=== PATIENT | female | born 1960 | race Caucasian/White ===

== ENCOUNTER 2018-10-18 09:42 | Inpatient (IN) | payer MEDICARE, OTHER ==
[~2018-10-18] VITALS: Ht 162.6 cm; Wt 35.4 kg
[~2018-10-18 09:42] MED LIST: AMITRIPTYLINE H75 M1 PO; AMLODIPINE BESY10 MG PO; AZITHROMYCIN 2250 MG; CARISOPRODOL 3350 M1 PO; CLONIDINE0.1 PO; CYCLOBENZAPRINE10 MG PO; LEVAQUIN 500 M500 M3 PO; LYRICA 75 MG CA75 MG PO; OMEPRAZOLE40 MG PO; OXYCODONE HCL 55 MG PO; PERCOCET 10-321 EACH PO; PREDNISONE 10 M10 M1 PO; REQUIP 1 MG TABL1 M1 PO; ROPINIROLE HCL2 M1 PO; ROPINIROLE HCL4 MG PO; VENTOLIN HFA 1818 GM INH; VICODIN 5-3001 EACH PO; VITAMIN D 5050000 I1 PO; XOPENEX HF1 UDINHALE INH
[2018-10-18 09:44] VITALS: BP 123/84
[2018-10-18 10:16] LABS: ABSOLUTE BASOPHILS 0.1 thou/uL (0.0-0.2); ABSOLUTE EOSINOPHILS 0.2 thou/uL (0.0-0.7); ABSOLUTE LYMPHOCYTES 0.6 thou/uL (0.8-5.3); ABSOLUTE MONOCYTES 0.6 thou/uL (0.0-1.2); ABSOLUTE NEUTROPHILS 7.7 thou/uL (1.6-8.1); BASOPHILS 0.6 %; EOSINOPHILS 1.8 %; HEMOGLOBIN 12.9 gm/dL (12.0-15.0); LYMPHOCYTES 6.5 %; MCH 28.1 pg (26.0-34.0); MCHC 32.2 g/dL (28.0-37.0); MCV 87.1 fL (80.0-100.0); MONOCYTES 6.6 %; MPV 8.5 fl. (7.2-11.1); NUCLEATED RBCS 0 /100WBC; PLATELET COUNT* 158 thou/uL (150-400); POLYS 84.5 %; RBC 4.59 mil/uL (4.20-5.00); RDW-CV 13.7 % (10.5-14.5); WBC 9.2 thou/uL (4.0-11.0)
[2018-10-18 10:23] LABS: CALCIUM 8.8 mg/dL (8.5-10.1); CREATININE 0.4 mg/dL (0.6-1.3); POTASSIUM 3.7 mmol/L (3.5-5.1)
[2018-10-18 10:30] LABS: PROTIME 10.5 Seconds (9.20-11.50)
[2018-10-18 10:34] LABS: ALBUMIN 3.5 g/dL (3.4-5.0); TOTAL BILIRUBIN 0.4 mg/dL (<0.1-1.0); TOTAL PROTEIN 7.2 g/dL (6.4-8.2)
[2018-10-18 11:31] LABS: URINE BILIRUBIN NEGATIVE (Negative); URINE BLOOD NEGATIVE (Negative); URINE CLARITY CLEAR; URINE COLOR YELLOW; URINE GLUCOSE-RANDOM NEGATIVE (Negative); URINE KETONES NEGATIVE (Negative); URINE LEUKOCYTES-REFLEX NEGATIVE (Negative); URINE NITRITE-REFLEX NEGATIVE (Negative); URINE PROTEIN NEGATIVE (Negative); URINE UROBILINOGEN 0.2 E.U./dl (0.2-1.0)
[2018-10-18 12:28] VITALS: BP 135/83
[2018-10-18 12:45] VITALS: BP 124/70
--- NOTE | 2018-10-18 16:55 | 2DMMODE ---
[place] [address] 2 D/M-MODE ECHOCARDIOGRAM Name: RADHA SCHNEIDER Room: [address] IN [facility]#: [id number] Admission: 10/18/18 Attend Phys: Malaika Wren, Discharge: Date of : 64 Date of Service: 10/18/18 1654 Report #: [id number] THIS REPORT FOR: //name// APPROVED REPORT Study performed: 10/18/2018 14:50:48 EXAM: Comprehensive 2D, Doppler, and color-flow Echocardiogram Patient Location: In-Patient Room #: [facility] Status: routine BSA: 1.20 HR: 100 bpm BP: 124/70 mmHg Rhythm: NSR Other Information Study Quality: Good Indications Pre-Op 2D Dimensions IVSd: 6.62 (7-11mm) LVOT Diam: 19.48 (18-24mm) LVDd: 31.13 mm PWd: 6.55 (7-11mm) LVDs: 25.23 (25-40mm) Aortic Root: 29.07 mm Volumes Left Atrial Volume (Systole) LA ESV Index: 28.40 mL/m2 Aortic Valve AoV Peak Felix.: 1.36 m/s AO Peak Gr.: 7.36 mmHg LVOT Max P.69 mmHg AO Mean Gr.: 3.54 mmHg LVOT Mean P.60 mmHg LVOT Max V: 0.96 m/s AO V2 VTI: 16.49 cm LVOT Mean V: 0.57 m/s TABITHA (VTI): 2.82 cm2 LVOT V1 VTI: 15.62 cm Mitral Valve E/A Ratio: 0.78 MV Decel. Time: 173.48 ms MV E Max Felix.: 0.79 m/[place] [address] 2 D/M-MODE ECHOCARDIOGRAM Name: RADHA SCHNEIDER Room: [address] IN [facility]#: [id number] Admission: 10/18/18 Attend Phys: Malaika Wren, Discharge: Date of : 64 Date of Service: 10/18/18 1654 Report #: [id number] MV PHT: 50.31 ms MVA (PHT): 4.37 cm2 TDI E/Lateral E': 7.90 E/Medial E': 8.78 Medial E' Felix.: 0.09 m/s Lateral E' Felix.: 0.10 m/s Pulmonary Valve PV Peak Felix.: 1.10 m/s PV Peak Gr.: 4.84 mmHg Tricuspid Valve RAP Estimate: 5.00 mmHg TR Peak Gr.: 43.88 mmHg RVSP: 48.00 mmHg PA Pressure: 48.00 mmHg Left Ventricle The left ventricle is normal size. There is normal LV segmental wall motion. There is normal left ventricular wall thickness. Left ventricular systolic function is normal. LVEF is 60-65%. Transmitral Doppler flow pattern suggests impaired LV relaxation. Right Ventricle The right ventricle is normal size. The right ventricular systolic function is normal. Atria The left atrium size is normal. The right atrium size is normal. Aortic Valve The aortic valve is normal in structure. No aortic regurgitation is present. There is no aortic valvular stenosis. Mitral Valve The mitral valve is normal in structure. There is no mitral valve regurgitation noted. No evidence of mitral valve stenosis. Tricuspid Valve The tricuspid valve is normal in structure. Trace tricuspid regurgitation. The RVSP is 45-50 mmHg. Pulmonic Valve The pulmonary valve is normal in structure. There is no pulmonic [place] [address] 2 D/M-MODE ECHOCARDIOGRAM Name: RADHA SCHNEIDER Room: [address] IN [facility]#: [id number] Admission: 10/18/18 Attend Phys: Malaika Wren, Discharge: Date of : 64 Date of Service: 10/18/18 1654 Report #: [id number] Great Vessels The aortic root is normal in size. IVC is normal in size and collapses >50% with inspiration. Pericardium There is no pericardial effusion. <Conclusion> The left ventricle is normal size. There is normal left ventricular wall thickness. Left ventricular systolic function is normal. LVEF is 60-65%. Transmitral Doppler flow pattern suggests impaired LV relaxation. Trace tricuspid regurgitation. The RVSP is 45-50 mmHg. IVC is normal in size and collapses >50% with inspiration. <ELECTRONICALLY SIGNED> By: Luis Hale MD, FACC 10/18/18 1654 53 [phone] Luis Hale MD, FACC /INF
[2018-10-18 17:25] VITALS: BP 136/74
[2018-10-18 20:00] VITALS: BP 118/73
[2018-10-19] VITALS (25 sets, daily range): BP systolic 79–200; BP diastolic 49–113
[2018-10-19 05:12] LABS: HEMATOCRIT 35.6 % (37.0-47.0); HEMOGLOBIN 11.6 gm/dL (12.0-15.0); MCH 28.6 pg (26.0-34.0); MCHC 32.5 g/dL (28.0-37.0); RBC 4.04 mil/uL (4.20-5.00); RDW-CV 13.6 % (10.5-14.5); WBC 6.7 thou/uL (4.0-11.0)
[2018-10-19 05:39] LABS: ALBUMIN 3.1 g/dL (3.4-5.0); CALCIUM 7.9 mg/dL (8.5-10.1); CREATININE 0.4 mg/dL (0.6-1.3); MAGNESIUM 1.9 mg/dL (1.8-2.4); POTASSIUM 4.6 mmol/L (3.5-5.1); TOTAL BILIRUBIN 0.2 mg/dL (<0.1-1.0); TOTAL PROTEIN 6.6 g/dL (6.4-8.2)
--- NOTE | 2018-10-19 10:49 | CON ---
[address] [address] CONSULTATION Name: RADHA SCHNEIDER Room: [address] IN [facility]#: [id number] Admission: 10/18/18 Attend Phys: Malaika Wren MD Discharge: Date of : 64 Report #: [id number] THIS REPORT FOR: //name// CC: Alexis Wren DATE OF SERVICE: 10/18/2018 TYPE OF REPORT: New patient evaluation. REASON FOR EVALUATION: Pneumothorax, shortness of breath, chronic respiratory failure and interstitial lung disease. HISTORY OF PRESENT ILLNESS: The patient is a pleasant 57-year-old woman with history of CREST syndrome, interstitial lung disease, chronic hypoxemic respiratory failure and has been on oxygen since 2012 and history of COPD. Apparently, she was admitted to [facility] after a fall and she has right hip fracture. She is being evaluated for surgery. Had a workup, which included chest x-ray showed incidental small right pneumothorax measuring 8 mm. It is noted that in 2017, she had large left-sided pneumothorax, has to be transferred for research and apparently had surgery. At this time, she denies any change in her shortness of breath. She states though last Friday, had some worsening shortness of breath and sore throat and was started on prednisone with some improvement; however, at this time, she is stable. No cough, no wheezing, no fever and no chills. Last echo in 2017, EF was normal. Her pulmonary artery pressure was normal at 29 at that time. The patient had extensive history of smoking. Has a history of CREST syndrome, interstitial lung disease which looks severe on chest x-ray and on oxygen since 2012. PAST MEDICAL HISTORY: CREST syndrome; scleroderma; hip fracture, new; previous history of left-sided pneumothorax and now right-sided pulmonary fibrosis, Raynaud, COPD and pneumothorax. ALLERGIES: MORPHINE. MEDICATIONS: Noted and reviewed. PAST SURGICAL HISTORY: Had right knee surgery, and carpal tunnel. FAMILY HISTORY: Mother, breast cancer. SOCIAL HISTORY: Actively smoking[place] [address] CONSULTATION Name: RADHA SCHNEIDER Room: [address]#: [id number] Admission: 10/18/18 Attend Phys: Malaika Wren MD Discharge: Date of : 64 Report #: [id number] REVIEW OF SYSTEMS: A 12-point review of systems significant for Raynaud's phenomenon, history of weakness, fatigue, shortness of breath on exertion and on oxygen, history of right hip pain post-fracture and denies chest pain. Otherwise, 12-point review of systems as above. PHYSICAL EXAMINATION: GENERAL: The patient is not in distress, afebrile. VITAL SIGNS: Pulse is 95, respiratory rate is 18, blood pressure 124/70 and O2 saturation is adequate on 2 liters with oxygen saturation of 99%. HEAD AND NECK: Neck supple. Oral mucosa clear. CHEST: Diffuse crackles. CARDIOVASCULAR: Irregular rhythm. ABDOMEN: Soft and nontender. EXTREMITIES: She has clubbing. NEUROLOGICAL: She has cachexia with wasting. LABORATORY AND OTHER DATABASE: White blood cell count 9.2 and hemoglobin 12.9. Creatinine of 0.4. Natriuretic peptide, pro-BNP 229. Chest x-ray as above, diffuse interstitial lung disease, severe. Please note that this the patient has pneumothorax on the contralateral side on the left side in 2017. The right side is new, as measuring 8 mm. ASSESSMENT AND PLAN: 1. Interstitial lung disease with chronic obstructive pulmonary disease with a pneumothorax. Her pneumothorax is spontaneous but with a history of chronic obstructive pulmonary disease, it is secondary, I agree with to monitor closely. We will obtain a chest x-ray later today. At this time, it is small; however, if it exceeds 2 cm, likely will need a chest tube as the patient has history of chronic obstructive pulmonary disease. 2. Interstitial lung disease, severe. At this time, we will continue oxygen with a history of previous prednisone use, likely will need stress dose steroids perioperatively. PREOPERATIVE EVALUATION: Her risk for postoperative pulmonary complication is moderate to high at least a 13% and risks include atelectasis, pneumonia, prolonged respiratory failure and pulmonary embolism. At this time, need to optimize her care and as above, stress dose steroids perioperatively. Recommend to obtain followup chest x-ray. Agree to hold on surgery today with a previous history of severe pneumothorax and COPD. Continue bronchodilator treatment perioperatively. This was discussed with the patient as well as nursing and we will discuss with Dr. Wren as well. <ELECTRONICALLY SIGNED> By: Suman Lang MD 10/19/18 1049 [id number] [id number] Lang MD /nt
--- NOTE | 2018-10-19 14:12 | CON ---
[address] [address] CONSULTATION Name: RADHA SCHNEIDER Room: [address] IN [facility]#: [id number] Admission: 10/18/18 Attend Phys: Malaika Wren MD Discharge: Date of : 64 Report #: [id number] THIS REPORT FOR: //name// CC: Alexis Wren CARDIOLOGY CONSULTATION INDICATION: Preoperative evaluation. HISTORY OF PRESENT ILLNESS: The patient is a 57-year-old white female who was admitted to the hospital with a right hip fracture after falling at home today. She has CREST syndrome and severe pulmonary fibrosis. She is status post pleurodesis 1 year ago at [facility] for recurrent pneumothoraces. She denies any history of myocardial infarction or heart failure. She is not having any chest pain or significant orthopnea or paroxysmal nocturnal dyspnea. EKG shows sinus tachycardia, without significant abnormality. PAST MEDICAL HISTORY: 1. CREST syndrome. 2. Pulmonary fibrosis. 3. Raynaud's phenomenon. 4. Previous colectomy. 5. Carpal tunnel surgery. 6. Ulnar nerve surgery. 7. Right knee surgery. 8. . 9. Restless leg syndrome. 10. COPD. 11. Asthma. 12. Pneumothorax x 2 on the left side, status post pleurodesis last year. FAMILY HISTORY: Noncontributory. SOCIAL HISTORY: The patient smokes daily. She does not drink alcohol. ALLERGIES: MORPHINE. CURRENT MEDICATIONS: Albuterol inhaler q. 4 hours p.r.n., omeprazole 40 mg daily, Flexeril 10 mg t.i.d., clonidine 0.1 mg daily, vitamin D 50,000 units daily, carisoprodol 350 mg p.o. q. 6 hours, ropinirole 4 mg daily, Lyrica 75 mg t.i.d. and oxycodone IR 5 mg 1-2 tablets q. 3 hours p.r.n. PHYSICAL EXAMINATION: VITAL SIGNS: Blood pressure 124/70, pulse 95 and regular. GENERAL: This is a very thin, white female, in no distress. [place] [address] CONSULTATION Name: RADHA SCHNEIDER Jan Room: [address]#: [id number] Admission: 10/18/18 Attend Phys: Malaika Wren MD Discharge: Date of : 64 Report #: [id number] HEENT: The patient is wearing glasses. Extraocular muscles intact. Mucous membranes moist. NECK: Examination of the neck shows no jugular venous distention. CHEST: Examination of the chest reveals bilateral crackles, consistent with fibrosis. Breath sounds are diminished. CARDIAC EXAMINATION: Reveals a regular rhythm with normal S1 and S2. I do not appreciate gallop or murmur. ABDOMEN: Examination of the abdomen reveals normal bowel sounds. EXTREMITIES: Examination of the extremities shows no edema. IMPRESSION AND RECOMMENDATIONS: 1. The patient is at low risk from a Cardiovascular standpoint for perioperative morbidity or mortality. No further cardiac testing or evaluation necessary at this time. Of note, the patient did have surgery with general anesthesia last year, which she tolerated well. 2. Right hip fracture, per Orthopedic Surgery. 3. Pulmonary fibrosis, per Pulmonology. 4. CREST syndrome, per primary physician. From a cardiac standpoint, the patient is not at prohibitive risk to proceed with surgery. We will follow as needed. <ELECTRONICALLY SIGNED> By: Luis Hale MD, FACC 10/19/18 1412 1608 [id number] Hale MD, FACC /nt
[2018-10-19 14:34] LABS: BE 4.5 mmol/L (-2 to +3)
[2018-10-19 14:36] LABS: pH 6.997 (7.340-7.450)
[2018-10-19 14:41] LABS: PCO2 > 163.4 mmHg (35.0-45.0)
[2018-10-19 16:53] LABS: BE 5.8 mmol/L (-2 to +3); PO2 60.2 mmHg (75.0-100.0)
[2018-10-19 16:54] LABS: pH 7.277 (7.340-7.450)
[2018-10-19 16:55] LABS: PCO2 76.4 mmHg (35.0-45.0)
[2018-10-20] VITALS (44 sets, daily range): BP systolic 84–128; BP diastolic 44–81
[2018-10-20 05:51] LABS: HEMATOCRIT 30.5 % (37.0-47.0); HEMOGLOBIN 9.9 gm/dL (12.0-15.0); MCH 28.5 pg (26.0-34.0); MCHC 32.5 g/dL (28.0-37.0); MCV 87.5 fL (80.0-100.0); MPV 9.3 fl. (7.2-11.1); RBC 3.48 mil/uL (4.20-5.00); RDW-CV 13.1 % (10.5-14.5); WBC 6.4 thou/uL (4.0-11.0)
[2018-10-20 06:01] LABS: CREATININE 0.2 mg/dL (0.6-1.3); MAGNESIUM 1.7 mg/dL (1.8-2.4); POTASSIUM 4.3 mmol/L (3.5-5.1)
[2018-10-20 11:29] LABS: BE 7.3 mmol/L (-2 to +3)
[2018-10-20 11:33] LABS: pH 7.252 (7.340-7.450)
[2018-10-20 11:34] LABS: PCO2 85.1 mmHg (35.0-45.0); PO2 131.2 mmHg (75.0-100.0)
--- NOTE | 2018-10-20 13:03 | EKG ---
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: : 1960 Requested By: Alejandro Rodriguez Order Number: [id number] MD: Je Miller Measurements Intervals [place] Rate: 102 P: 32 MD: 113 QRS: 62 QRSD: 76 T: 75 QT: 311 QTc: 406 Interpretive Statements Sinus tachycardia Consider left ventricular hypertrophy Baseline wander in lead(s) V1 Compared to ECG 03/17/2017 14:09:43 Sinus rhythm no longer present Electronically Signed On 10-20-2018 13:03:02 CDT by Je Miller [email or web address] <ELECTRONICALLY SIGNED> By: Je Miller MD, FAC 10/20/18 1303 1004 1004 Je Miller MD, [facility] /EPI
[2018-10-21] VITALS (16 sets, daily range): BP systolic 87–141; BP diastolic 58–98
[2018-10-21 04:14] LABS: HEMATOCRIT 29.3 % (37.0-47.0); HEMOGLOBIN 9.7 gm/dL (12.0-15.0); MCHC 33.2 g/dL (28.0-37.0); MCV 87.3 fL (80.0-100.0); MPV 9.5 fl. (7.2-11.1); RBC 3.35 mil/uL (4.20-5.00); RDW-CV 13.4 % (10.5-14.5); WBC 5.4 thou/uL (4.0-11.0)
[2018-10-21 04:51] LABS: ALBUMIN 2.4 g/dL (3.4-5.0); CALCIUM 8.1 mg/dL (8.5-10.1); CREATININE 0.2 mg/dL (0.6-1.3); MAGNESIUM 2.1 mg/dL (1.8-2.4); POTASSIUM 4.5 mmol/L (3.5-5.1); TOTAL BILIRUBIN 0.3 mg/dL (<0.1-1.0); TOTAL PROTEIN 5.9 g/dL (6.4-8.2)
[2018-10-21 08:46] LABS: BE 12.2 mmol/L (-2 to +3); pH 7.331 (7.340-7.450)
[2018-10-21 08:49] LABS: PCO2 78.3 mmHg (35.0-45.0)
[2018-10-22] VITALS (12 sets, daily range): BP systolic 102–157; BP diastolic 65–91
[2018-10-22 03:26] LABS: ABSOLUTE LYMPHOCYTES 0.9 thou/uL (0.8-5.3); ABSOLUTE MONOCYTES 0.6 thou/uL (0.0-1.2); ABSOLUTE NEUTROPHILS 5.8 thou/uL (1.6-8.1); BASOPHILS 0.1 %; EOSINOPHILS 0.2 %; HEMATOCRIT 30.7 % (37.0-47.0); LYMPHOCYTES 12.4 %; MCH 28.1 pg (26.0-34.0); MCHC 32.6 g/dL (28.0-37.0); MCV 86.2 fL (80.0-100.0); MONOCYTES 8.3 %; MPV 9.1 fl. (7.2-11.1); NUCLEATED RBCS 0 /100WBC; PLATELET COUNT* 162 thou/uL (150-400); RBC 3.56 mil/uL (4.20-5.00); RDW-CV 12.9 % (10.5-14.5); WBC 7.4 thou/uL (4.0-11.0)
[2018-10-22 03:45] LABS: ALBUMIN 2.5 g/dL (3.4-5.0); ALKALINE PHOSPHATASE 70 U/L (46-116); ANION GAP < 0 mmol/L (7-16); BUN 9 mg/dL (7-18); CALCIUM 8.3 mg/dL (8.5-10.1); CHLORIDE 100 mmol/L (98-107); CO2 44 mmol/L (21-32); CREATININE 0.3 mg/dL (0.6-1.3); GLUCOSE 127 mg/dL (70-99); MAGNESIUM 1.6 mg/dL (1.8-2.4); SGOT 12 U/L (15-37); SGPT 19 U/L (30-65); SODIUM 143 mmol/L (136-145); TOTAL BILIRUBIN 0.2 mg/dL (<0.1-1.0); TOTAL PROTEIN 5.8 g/dL (6.4-8.2)
[2018-10-23] VITALS (23 sets, daily range): BP systolic 83–124; BP diastolic 41–76
[2018-10-23 03:49] LABS: ABSOLUTE EOSINOPHILS 0.1 thou/uL (0.0-0.7); ABSOLUTE LYMPHOCYTES 1.2 thou/uL (0.8-5.3); ABSOLUTE MONOCYTES 0.4 thou/uL (0.0-1.2); ABSOLUTE NEUTROPHILS 3.1 thou/uL (1.6-8.1); BASOPHILS 0.2 %; EOSINOPHILS 2.6 %; HEMATOCRIT 26.2 % (37.0-47.0); HEMOGLOBIN 8.3 gm/dL (12.0-15.0); LYMPHOCYTES 25.9 %; MCH 27.8 pg (26.0-34.0); MCHC 31.9 g/dL (28.0-37.0); MCV 87.3 fL (80.0-100.0); MONOCYTES 7.4 %; MPV 8.3 fl. (7.2-11.1); NUCLEATED RBCS 0 /100WBC; PLATELET COUNT* 136 thou/uL (150-400); POLYS 63.9 %; RDW-CV 13.3 % (10.5-14.5); WBC 4.8 thou/uL (4.0-11.0)
[2018-10-23 04:00] LABS: ALBUMIN 2.3 g/dL (3.4-5.0); ALKALINE PHOSPHATASE 63 U/L (46-116); ANION GAP < 0 mmol/L (7-16); BUN 11 mg/dL (7-18); CALCIUM 8.2 mg/dL (8.5-10.1); CHLORIDE 101 mmol/L (98-107); CO2 41 mmol/L (21-32); CREATININE 0.4 mg/dL (0.6-1.3); GLUCOSE 118 mg/dL (70-99); MAGNESIUM 1.8 mg/dL (1.8-2.4); PHOSPHORUS* 1.8 mg/dL (2.5-4.9); POTASSIUM 4.8 mmol/L (3.5-5.1); SGOT 11 U/L (15-37); SGPT 18 U/L (30-65); SODIUM 141 mmol/L (136-145); TOTAL BILIRUBIN 0.2 mg/dL (<0.1-1.0); TOTAL PROTEIN 5.3 g/dL (6.4-8.2)
[2018-10-24] VITALS (7 sets, daily range): BP systolic 98–128; BP diastolic 56–82
[2018-10-24] MEDS ORDERED: PERCOCET 10-321 EAC1 PO (10:10)
[2018-10-24] MEDS ORDERED: TOPAMAX 100 MG100 MG PO (10:15)
[2018-10-24] MEDS ORDERED: REMERON15 MG PO (10:16)
[2018-10-24] MEDS ORDERED: LINZESS290 MCG PO (10:17)
[2018-10-24] MEDS ORDERED: EFFEXOR XR75 MG PO (10:17)
[2018-10-24] MEDS ORDERED: IPRAT-ALBUT 0.5-3 ML INH (10:18)
[2018-10-24] MEDS ORDERED: SENNA-S TABLET1 EACH PO (10:20)
[2018-10-25] VITALS: BP 106/57
[2018-10-25 04:00] VITALS: BP 130/75
[2018-10-25 05:30] LABS: ABSOLUTE LYMPHOCYTES 1.1 thou/uL (0.8-5.3); BASOPHILS 0.4 %; MCV 86.9 fL (80.0-100.0)
[2018-10-25 05:32] LABS: ABSOLUTE EOSINOPHILS 0.2 thou/uL (0.0-0.7); ABSOLUTE MONOCYTES 0.5 thou/uL (0.0-1.2); ABSOLUTE NEUTROPHILS 5.8 thou/uL (1.6-8.1); EOSINOPHILS 2.6 %; HEMOGLOBIN 8.8 gm/dL (12.0-15.0); LYMPHOCYTES 14.6 %; MCH 28.5 pg (26.0-34.0); MCHC 32.8 g/dL (28.0-37.0); MPV 9.6 fl. (7.2-11.1); NUCLEATED RBCS 0 /100WBC; PLATELET COUNT* 149 thou/uL (150-400); POLYS 75.4 %; RDW-CV 13.3 % (10.5-14.5); WBC 7.7 thou/uL (4.0-11.0)
[2018-10-25 05:52] LABS: CALCIUM 8.5 mg/dL (8.5-10.1); CREATININE 0.3 mg/dL (0.6-1.3); POTASSIUM 3.9 mmol/L (3.5-5.1)
[2018-10-25 08:00] VITALS: BP 105/68
[2018-10-25 11:30] VITALS: BP 99/56
[2018-10-25 16:00] VITALS: BP 99/74
[2018-10-25 20:00] VITALS: BP 142/82
[2018-10-26] VITALS: BP 120/89
[2018-10-26 04:00] VITALS: BP 128/79
[2018-10-26 08:21] VITALS: BP 121/79
[2018-10-26 12:19] VITALS: BP 110/71
[2018-10-26 16:29] VITALS: BP 124/79
[2018-10-26 20:00] VITALS: BP 114/64
--- NOTE | 2018-10-26 21:24 | OP ---
[address] [address] OPERATIVE REPORT Name: RADHA SCHNEIDER Room: [address] IN .#: [id number] Admission: 10/18/18 Attend Phys: Malaika Wren MD Discharge: Date of : 64 Report #: [id number] THIS REPORT FOR: //name// CC: Alexis Wren DICTATED BY: Cj Bennett DO DATE OF SERVICE: 10/19/2018 PREOPERATIVE DIAGNOSIS: Right intertrochanteric femur fracture. POSTOPERATIVE DIAGNOSIS: Right intertrochanteric femur fracture. PROCEDURE PERFORMED: Insertion of cephalomedullary nail, right hip. SURGEON: Je Moon DO. R&D ENGINEER: Cj Bennett DO. ANESTHESIA: General. ESTIMATED BLOOD LOSS: 50 mL. ANTIBIOTICS: 1 gram Ancef IV preoperatively. SPECIMENS: None. COMPLICATIONS: None. CONDITION: The patient is stable to PACU. INDICATIONS FOR PROCEDURE: This is a 57-year-old female who suffered a fall onto her right hip. She was seen at [facility] Emergency Department and found to have a right intertrochanteric femur fracture. This fall occurred on 10/18/2018. She does have a history of CREST syndrome and pulmonary fibrosis. She did undergo cardiac and pulmonary as well as medicine evaluations preoperatively and was cleared for surgery. The risks, benefits, alternatives and complications of surgical fixation were discussed with the patient and she did wish to proceed with surgery. DESCRIPTION OF PROCEDURE: The patient was seen and examined in the preoperative holding area. The correct upper extremity was marked by the operating surgeon. Written consent was obtained for the procedure. She was transferred to the operating room and given the benefit of general anesthesia. She was then placed supine on the Thelma table. The right lower extremity was [place] [address] OPERATIVE REPORT Name: RADHA SCHNEIDER Room: [address]#: [id number] Admission: 10/18/18 Attend Phys: Malaika Wren MD Discharge: Date of : 64 Report #: [id number] The left lower extremity was placed in the Well-Leg ng. The right lower extremity was then prepped and draped in the usual sterile fashion. Timeout was performed to verify the correct patient, procedure and operative extremity and all were in agreement. The procedure began using an approximately 3-cm incision just proximal to the tip of the greater trochanter. A guidewire was inserted at the tip of the trochanter and confirmed to be in appropriate position on the AP and lateral radiographs. This was advanced into the femoral canal. Next, the opening reamer was used to ream to the level of the lesser trochanter. The short 130-degree gamma nail was then inserted into the right femur. This was inserted to the appropriate position utilizing AP and lateral fluoroscopic images. Next, the double sleeve guide was inserted and the lag screw was inserted and noted to be center on the AP and lateral radiographs. This was measured to be a size 95 screw. This was reamed to the appropriate depth and inserted. The set screw was then inserted, locking the lag screw in place. Next, the distal interlock screw was inserted using the triple sleeve guide. This was drilled through the guide and measured to be a 35 screw. This was inserted. The targeting arm was then removed and final radiographs were taken. Final radiographs demonstrated appropriate reduction with hardware in appropriate position. The incisions were then thoroughly irrigated and closed with a 0 Vicryl in deep layer, 2-0 Vicryl subcutaneously and juan alberto on the skin. A sterile Mepilex dressing was then applied. The patient was transferred off the operating room table and awakened from anesthesia. She was then transferred to the PACU in stable condition. POSTOPERATIVE PLAN: The patient's respiratory status will be monitored closely. She will be admitted back to the inpatient floor following recovery in PACU. She will be weightbearing as tolerated to the right lower extremity. Physical therapy and pain control will be initiated. She will also start DVT prophylaxis tomorrow in the form of Eliquis 2.5 mg b.i.d. The patient tolerated the procedure well. There were no complications. <ELECTRONICALLY SIGNED> By: Je Moon DO 10/26/18 2124 1421 1437Davisam Moon DO /nt
[2018-10-27] VITALS: BP 110/66
[2018-10-27 04:00] VITALS: BP 103/73
[2018-10-27 08:00] VITALS: BP 105/64
[2018-10-27 12:00] VITALS: BP 88/40
[2018-10-27] MEDS ORDERED: ELIQUIS2.5 MG PO (12:42)
[2018-10-27] MEDS ORDERED: ERGOCALCIF50000 UNIT PO (12:42)
[2018-10-27] MEDS ORDERED: LEVAQUIN 500 M500 M2 PO (12:43)
[2018-10-27] MEDS ORDERED: ATIVAN0.5 MG PO (12:44)
[2018-10-27] MEDS ORDERED: MIRALAX17 GM PO (12:44)
[2018-10-27] MEDS ORDERED: PEPCID20 MG PO (12:45)
[2018-10-27] MEDS ORDERED: PREDNISONE 10 M10 MG PO (12:48)
[2018-10-27] MEDS ORDERED: PROVIGIL 100 M100 M1 PO (12:49)
[2018-10-27] MEDS ORDERED: ALUMINUM H320 MG/5 M PO (12:51)
[2018-10-27 12:53] VITALS: BP 105/64
== END 2018-10-27 16:39 | DRG 480 ==
LOC: M.ERS 09:42 → M.TBA-ER 10:43 → M.2W 10:43 → M.ICU 10:43 → M.2W 12:47 → M.ICU 10-19 15:04 → M.2W 10-23 21:44
PROVIDERS: Anesthesiology; Emergency Medicine; Internal Medicine; Internal Medicine Critical Care Medicine; Internal Medicine Pulmonary Disease; Orthopaedic Surgery; ADMIT Internal Medicine
PROC: 0QH606Z Insertion of Intramedullary Internal Fixation Device into Right Upper Femur, Open Approach (ICD-10-PCS; principal; 2018-10-18)
PROC: 5A1945Z Respiratory Ventilation, 24-96 Consecutive Hours (ICD-10-PCS; 2018-10-19)
PROC: 0BH17EZ Insertion of Endotracheal Airway into Trachea, Via Natural or Artificial Opening (ICD-10-PCS; 2018-10-19)
PROC: 02HV33Z Insertion of Infusion Device into Superior Vena Cava, Percutaneous Approach (ICD-10-PCS; 2018-10-21)
PROC: 5A09357 Assistance with Respiratory Ventilation, Less than 24 Consecutive Hours, Continuous Positive Airway Pressure (ICD-10-PCS; 2018-10-23)
PROC: 5A09357 Assistance with Respiratory Ventilation, Less than 24 Consecutive Hours, Continuous Positive Airway Pressure (ICD-10-PCS; 2018-10-24)
PROC: 5A09357 Assistance with Respiratory Ventilation, Less than 24 Consecutive Hours, Continuous Positive Airway Pressure (ICD-10-PCS; 2018-10-25)
DX: S72.141A Displaced intertrochanteric fracture of right femur, initial encounter for closed fracture (principal); E43 Unspecified severe protein-calorie malnutrition; J96.21 Acute and chronic respiratory failure with hypoxia; J96.22 Acute and chronic respiratory failure with hypercapnia; J93.9 Pneumothorax, unspecified; J44.1 Chronic obstructive pulmonary disease with (acute) exacerbation; R64 Cachexia; Z68.1 Body mass index [BMI] 19.9 or less, adult; M34.1 CR(E)ST syndrome; J84.10 Pulmonary fibrosis, unspecified; G25.81 Restless legs syndrome; D64.9 Anemia, unspecified; F17.210 Nicotine dependence, cigarettes, uncomplicated; I73.00 Raynaud's syndrome without gangrene; M81.0 Age-related osteoporosis without current pathological fracture; W19.XXXA Unspecified fall, initial encounter; Z88.8 Allergy status to other drugs, medicaments and biological substances; Z79.899 Other long term (current) drug therapy; Z98.891 History of uterine scar from previous surgery; Z80.3 Family history of malignant neoplasm of breast; Z90.710 Acquired absence of both cervix and uterus; Z90.49 Acquired absence of other specified parts of digestive tract; Y93.89 Activity, other specified; Y92.098 Other place in other non-institutional residence as the place of occurrence of the external cause; Y99.8 Other external cause status

== ENCOUNTER 2018-10-27 13:51 | Inpatient (IN) | payer MEDICARE, OTHER ==
[~2018-10-27] VITALS: Ht 160 cm; Wt 33.6 kg
[~2018-10-27 13:51] MED LIST changes: +ALUMINUM H320 MG/5 M PO; +ATIVAN0.5 MG PO; +EFFEXOR XR75 MG PO; +ELIQUIS2.5 MG PO; +ERGOCALCIF50000 UNIT PO; +IPRAT-ALBUT 0.5-3 ML INH; +LEVAQUIN 500 M500 M2 PO; +LINZESS290 MCG PO; +MIRALAX17 GM PO; +PEPCID20 MG PO; +PERCOCET 10-321 EAC1 PO; +PREDNISONE 10 M10 MG PO; +PROVIGIL 100 M100 M1 PO; +REMERON15 MG PO; +SENNA-S TABLET1 EACH PO; +TOPAMAX 100 MG100 MG PO
[2018-10-27 17:15] VITALS: BP 104/77
--- NOTE | 2018-10-27 18:43 | NUR ---
57 YR OLD FEMALE PATIENT ADMITTED TO ROOM 333 SP ORIF OF THE RIGHT HIP. IMMEDIATELY UPON ARRIVAL PT WENT INTO A PANIC ATTACK. RESPIRATORY THERAPIST CAME UP AND PUT HER ON A NON REBREATHER MASK. PT'S HR HAS BEEN BETWEEN 131 AND 150, RR IN THE 40'S. PT WAS GIVEN ONE PERCOCET AND 0.5MG ATIVAN AND WAS ABLE TO RELAX. PT'S IS AT THE BEDSIDE AND IS VERY SUPPORTIVE. PT IS ON A LOW AIR LOSS BED IS BEING UTILIZED BECAUSE PT IS EMACIATED AND ALREASY HAS A WOUND ON HER BACK. CALL LIGHT AND PERSONAL ITEMS PLACED WITHIN REACH.
[2018-10-27 19:55] VITALS: BP 133/72
--- NOTE | 2018-10-28 02:38 | NUR ---
ASSUMED CARE @ 1929-10/27-TU.APPEARS SLEEPING ON HER BACK W/ HOB UP.TRANSFERED FROM TELEMETRY @ 1714.NON REBREATHING MASK ON.ON LOW AIR LOSS BED.HEELS OFF BED ALREADY @ 1929.IDANIA GARICA PATENT.DC @ 1929-131 TO 134/MIN-REGULAR. LATER DC @ 2114-115 TO 118/MIN -REGULAR.AWAKENED @ 2114 FOR HS MEDS.SEE PAIN MANAGEMENT @ 2141.CRYING @ 2199.SON NOT ABLE TO VISIT NOW DUE TO WORK SCHEDULE.O2 3L/NC PUT ON WHILE EATING HS SNACK @ 2214.BI PAP PUT ON @ 010. PRN ATIVAN 0.5 MG GIVEN @ 0120-PER PT'S REQUEST.WANTS BI PAP OFF @ 209 & PUT BACK ON O2 3L/NC.ON HOURLY ROUNDS.CAPTION WRITER DOING ODD HOUR ROUNDS.
[2018-10-28 05:06] LABS: HEMATOCRIT 45.5 % (37.0-47.0); MCH 28.7 pg (26.0-34.0); MCHC 32.4 g/dL (28.0-37.0); MCV 88.6 fL (80.0-100.0); MPV 8.8 fl. (7.2-11.1); RBC 5.14 mil/uL (4.20-5.00); RDW-CV 14.3 % (10.5-14.5); WBC 19.6 thou/uL (4.0-11.0)
--- NOTE | 2018-10-28 05:22 | NUR ---
SLEEPING SINCE 1930.TWO ULCERS SPINE ON BACK-PHOTOS TAKEN @ 0340 & THEN,BOTH DRESSINGS CHANGED @ 0345.LAB DRAW BLOOD @ 0400 & PUL TX GIVEN @ 0400.SEE 2ND PAIN MANAGEMENT @ 0503.TOOK ALL BURRITO W/ SODA HS SNACKS.
[2018-10-28 05:35] LABS: HEMOGLOBIN 14.8 gm/dL (12.0-15.0)
[2018-10-28 05:40] LABS: CALCIUM 8.8 mg/dL (8.5-10.1); CREATININE 0.3 mg/dL (0.6-1.3); POTASSIUM 5.1 mmol/L (3.5-5.1)
[2018-10-28 07:32] LABS: URINE BILIRUBIN NEGATIVE (Negative); URINE BLOOD NEGATIVE (Negative); URINE CLARITY CLEAR; URINE COLOR YELLOW; URINE GLUCOSE-RANDOM NEGATIVE (Negative); URINE KETONES TRACE (Negative); URINE LEUKOCYTES-REFLEX NEGATIVE (Negative); URINE NITRITE-REFLEX NEGATIVE (Negative); URINE PROTEIN NEGATIVE (Negative); URINE SPECIFIC GRAVITY 1.015 (1.005-1.030)
[2018-10-28 10:37] VITALS: BP 102/61
--- NOTE | 2018-10-28 13:28 | NUR ---
CALLED TO PATIENT'S ROOM DUE TO DIFFICULTIES BREATHING. DR NAVA ASKED THAT DR CARRILLO SEE PATIENT STAT. DR CARRILLO EVAL. PATIENT AND ORDERED LAB. PATIENT CONT. O2 AT 2 LITERS OXYGEN SAT 89-90 ROOM AIR. BLOOD GASES ORDERED BY DR CARRILLO. PSYCH CONSULT CALLED IN WAS ASKED BY MEDICAL TEAM TO HOLD OFF UNTIL PATIENT MORE ALERT.
--- NOTE | 2018-10-28 15:17 | NUR ---
PATIENT TO HAVE TELE-PSYCH IN AM WHEN SHE'S MORE ALERT. SITTING UP IN CHAIR IN ROOM. WILL CONT. TO MONITOR.
[2018-10-28 15:21] LABS: BE 5.1 mmol/L (-2 to +3); pH 7.359 (7.340-7.450)
[2018-10-28 15:31] LABS: PCO2 58.6 mmHg (35.0-45.0)
--- NOTE | 2018-10-28 16:37 | NUR ---
DR CARRILLO READ ICT PROGRAMMER BLOOD GASES, NO RESPONSE.
--- NOTE | 2018-10-28 16:41 | NUR ---
ELVIN completed initial assessment, SW and Dr Adkins met with pt and pt to review team conference summary and plan for pt to continue therapies and reteam next Saturday 11/04. Pt was not able to communicate with Dr Adkins very well and began to open mouth breathe rapidly although pt was laying still and looking at Dr Adkins. Pt expressed concern that pt was not eating and Dr Adkins encouraged pt to eat and participate in therapies. Dr Adkins discussed with nursing and with Dr Avila that pt may not be medically appropriate for pt to remain on inpt rehab; after reviewed by Dr Avila and labs reviewed, apparently not a medical reason at this point to transfer off of unit, discussion of behavior and motivation for therapies, either way, continue to assess pt behaviors and participation in therapies and nutrition to determine if pt will continue to meet criteria for inpt rehab. SW to continue to follow to assist with safe dc planning. Pt to dc home with as caregiver at time of dc.
--- NOTE | 2018-10-28 18:37 | NUR ---
RISK ENGINEER BLOOD GASES CALLED TO DR CARRILLO, NO NEW ORDERS.
[2018-10-28 19:05] VITALS: BP 88/63
[2018-10-28 21:35] VITALS: BP 120/79
--- NOTE | 2018-10-29 00:41 | NUR ---
ASSUMED CARE @ 1924-10/28-FRI.AWAKE IN BED W/ HOB UP EATING MILK & SMITHA.CAKE. VISITING @ THIS TIME.02 3L/NC ON.HEELS OFF BED @ 1924.SEE PAIN MANAGEMENT @ 2048.PRN FLEXERIL PO GIVEN @ 2112 & PRN ATIVAN PO GIVEN @ 2118-BOTH PER PT'S REQUEST.LAST BM-10/18.CHECKED FOR IMPACTION @ 2139.NO STOOLS FELT ON RECTAL EXAM.CONSENTED TO REMOVE PANTS @ NIGHT.NO DRESSING FOUND ON LOWER PART OF SPINE ULCER.NEW MEPILEX DRSG W/ AQUACEL APPLIED @ 2144.TRILOGY PUT ON BY RESP.THERAPIST @ 2229.BP @ .BP RE-CHECKED @ .ON HOURLY ROUNDS.SNAKER TRACTOR DRIVER DOING ODD HOUR ROUNDS.
--- NOTE | 2018-10-29 05:35 | NUR ---
SLEEPING SINCE 1999 & SLEPT GOOD ALL NIGHT TILL 0400 X 6 HOURS.WANTS TRILOGY OFF @ 0410.O2 3L/NC PUT ON.USED TRILOGY X 5 HOURS & 40 MINUTES.FOR TELE- PSYCH THIS AM.
[2018-10-29 08:50] VITALS: BP 97/58
[2018-10-29 10:00] VITALS: BP 102/68
--- NOTE | 2018-10-29 17:26 | NUR ---
ASSUMMED CARE OF PT AT 0730, PT ALERT AND ORIENTED, PT TRANSFERS WITH MIN/SBA GB WALKER AND CUEING. COMPLAINS OF RIGHT HIP PAIN AND BACK PAIN, MEDICATED FOR PAIN EVERY 4 HOURS PER PT REQUEST, REQUESTED MEDICATION FOR ANXIETY THIS AM, TEARY EYED AT TIMES, PT DID EAT SOME OF MEAL TRAYS WITH ENCOURAGEMENT, PT COMPLAINED OF LEFT ARM WEAKNESS AND NUMBNESS AND TINGLING THIS SHIFT, PT STATES HAS HAD FOR 2 DAYS, STATES SHE CANT MOVE IT BUT LATER PT HAD BOTH ARMS ABOVE HEAD FIXING HER HAIR WITH NO WEAKNESS NOTED, PT ALSO HAD HER EYES CLOSED AND WOULD NOT RESPOND, SHOULDER TOUCH WITH NO RESPONSE, PT NAME CALLED SEVERAL TIMES LOUDLY AND PT FINALLY ACKNOWLEDGED STAFF, PT SAID SHE COULD HEAR EVERYTHING SAID TO HER BUT JUST COULDNT OPEN HER EYES, DR NAVA AWARE OF PT BEHAVIOR, TELE PSYCH CONSULT DONE THIS AM, EMERSON PATENT AND DRAINING YELLOW URINE, PT HAD MODERATE LIQUID BM THIS SHIFT, DENIES ABDOMINAL DISCOMFORT, USING INCENTIVE SPIROMETER, PARTICPATED IN THERAPIES WITH ENCOURAGEMENT, REPOSTIONED EVERY 2 HOURS, DRESSING TO BACK WOUNDS INTACT, OLD DRAINAGE NOTED, RIGHT HIP DRESSING INTACT WITH OLD DRAINAGE, O2 ON AT 3L AND PT SATING 95%. HOURLY ROUNDING COMPLETED, ASSESSMENT COMPLETE, WILL CONTINUE TO MONITOR.
[2018-10-29 20:00] VITALS: BP 118/75
--- NOTE | 2018-10-30 06:06 | NUR ---
ASSUMED CARE OF PATIENT AT 2315. PATIENT SLEEPING. HAS OXYGEN PER NASAL CANNULA AT 3 LITERS. CALLED RESPIRATORY AND BIPAP WAS PLACED. PATIENT CALLED AT ABOUT 0420 TO HAVE BIPAP REPLACED WITH NASAL CANNULA. PERCOCET GIVEN AT 0430 FOR COMPLAINT OF RIGHT HIP PAIN WITH RELIEF. ASSISTED WITH REPOSITIONING. EMERSON TO DD WITH YELLOW URINE. HOURLY ROUNDING IN PROGRESS.
[2018-10-30 08:19] VITALS: BP 101/68
--- NOTE | 2018-10-30 17:11 | NUR ---
ASSUMMED CARE OF PT AT 0730, PT ALERT AND ORIENTED, PT COMPLAINS OF PAIN IN RIGHT HIP,BACK, MEDICATED PER ORDER, PT COMPLIANS OF NAUSEA THIS AM,NO EMESIS, ORDERED OBTAINED AND MEDICATION GIVEN WITH GD RELIEF, PT TRANSFERS WITH ASSIST OF 1, GB WALKER, MOVES SLOW, EMERSON PATENT AND DRAINING JONATAN URINE, APETITE IMPROVED THIS SHIFT, PT IN SPECIALTY BED, PT HAD LUNCH IN DININGROOM, DR NAVA INFORMED OF PT BOWEL STATUS, DISCUSSED WITH PT, ABDOMEN SOFT, SOME BOWEL SOUNDS, NO FURTHER ORDERS, DRESSING CHANGED TO BACK, HIP DRESSING INTACT WITH OLD DRAINAGE, PARTICIPATED IN ALL THERAPIES, HOURLY ROUNDING COMPLETED, ASSESSMENT COMPLETE, PT REPOSTIONED WHEN IN CHAIR, WILL CONTINUE TO MONITOR.
[2018-10-30 20:08] VITALS: BP 94/76
--- NOTE | 2018-10-31 02:12 | NUR ---
ASSUMED CARE @ 1939-10/30-FRIDAY.AWAKE IN BED W/ HOB UP.IDANIA-PATENT.ON SPECIALTY BED.O2 3L/NC ON.PRN ATIVAN 0.5 MG GIVEN @ 2030-PER PT'S REQUEST BEFORE TRILOGY PUT ON @ 2205.SEE PAIN MANAGEMENT @ 2242.C/O UNABLE TO BREATH. NOTED O2 NOT CONNECTED TO TRILOGY @ 2245.RN CONNECTED O2 3L TO TRILOGY @ 2245. ON HOURLY ROUNDS.CAREER DEVELOPER DOING ODD HOUR ROUNDS.
--- NOTE | 2018-10-31 05:17 | NUR ---
SLEEPING SINCE 2334 & SLEPT GOOD ALL NIGHT.SLEPT X 4 HOURS & 40 MINUTES-UP TO THIS TIME @ 0415.SEE 2ND PAIN MANAGEMENT @ 0426.WANTS TRILOGY OFF @ 0416 & DONE.02 3L/NC PUT ON @ 0416.USED TRILOGY X 6 HOURS & 10 MINUTES.WENT BACK TO SLEEP AFTER TAKING PAIN MED @ 0426.TOOK ALL SMITHA.ICE CREAM & COKE-210 ML HS SNACKS.
[2018-10-31 06:00] VITALS: BP 120/72
[2018-10-31 07:29] VITALS: BP 127/72
--- NOTE | 2018-10-31 16:14 | NUR ---
ASSUMED CARE AT 0730. ALERT ORIENTED PLEASANT COOPERATIVE. HX OF RT. HIP FX WBATRLE. TRANSFES WITH SBA G BELT WALKER AND AMBULATES TO BR TO VOID. PARTICIPATING IN THERAPIES THROUGHOUT THE DAY. USES CALL LIGHT APPROPRIATELY FOR ASSISTANCE. EMERSON PATENT WITH JONATAN URINE TO DD BAG. HAS SPECIALTY BED FOR SKIN ISSUES. WEARS O2 AT 3L/M PER N/C CONTINOUSLY. APPETITE GOOD AT BREAKFAST BUT ONLY DRANK ENSURE AT LUNCH TO DR FOR MEALS. AND OTHER FAMILY HERE VISITING TODAY. TAKES MEDS WITHOUT DIFFICULTY.
[2018-10-31 20:15] VITALS: BP 134/76
--- NOTE | 2018-10-31 23:47 | NUR ---
ASSUMED CARE AT 1930. PATIENT RESTING IN RECLINER UNTIL AROUND 1999. HUSB STAYED UNTIL A LITTLE AFTER THAT. UP WITH ONE, GAIT BELT, WALKER, CUEING, EXTRA TIME. EMERSON DRAINS JONATAN URINE TO DD. TAKES PILLS A FEW AT A TIME WIHT WATER WITHOUT DIFF. ON SPECIALTY BED. VERY ANXIOUS ABOUT APPLICATION OF TRILOGY AT HS, BUT THIS WENT SMOOTHLY. [facility] SHOWED THIS NURSE HOW OXYGEN WAS BLED INTO MACHINE AT 5L PER HOME ROUTINE. ATIVAN GIVEN 20 MINUTES PRIOR TO APPLICATION OF TRILOGY. PATIENT STATES SHE HAS TO CHEW THE ATIVAN SO IT WORKS FAST ENOUGH TO HELP WITH THE ANXIETY THAT THE TRILOGY MASK CAUSES. TRILOGY APPLIED AT 2200 WITHOUT INCIDENT. O2 3L/NC IN USE WHEN NOT USING TRILOGY, AND THIS LEFT IN REACH IN CASE PATIENT WANTS TO TAKE OFF TRILOGY MASK LATER IN THE SHIFT. MOVES WELL IN BED. DRESSINGS TO BACK C/D/I. CALL LITE IN REACH. BED ALARM ON. HOURLY ROUNDS CONTINUE.
--- NOTE | 2018-11-01 05:43 | NUR ---
SLEPT MUCH OF THE NIGHT. WORE TRILOGY FROM AROUND 2200 TO 0300. ASSISTED WITH TURNS SHE ALLOWED. MEDICATED FOR PAIN. EMERSON DRAINS JONATAN URINE. CALL LITE IN REACH. BED ALARM ON. HOURLY ROUNDS CONTINUE.
[2018-11-01 06:13] VITALS: BP 137/77
[2018-11-01 07:46] VITALS: BP 102/69
--- NOTE | 2018-11-01 15:27 | NUR ---
ASSUMED CARE AT 0730. ALERT ORIENTED PLEASANT COOPERATIVE. HX OF RT. FEMUR FX COPD. WEARS O2 AT 3L/M PER N/C CONTINOUSLY. TRANSFERS WITH SBA G BELT WALKER AMBULATES TO BR TO ATTEMPT TO HAVE BM WITHOUT RESULTS. EMERSON PATENT WITH LIGHT JONATAN URINE TO DD BAG. DRESSING RT. HIP C/D/I. DRESSINGS CHANGED TO SPINAL PROCESS PICTURES TAKEN AND NEW DRESSINGS APPLIED, TURNED AND POSITIONED TO L SIDE THIS A.M. FOR 1 HR. AFTER DRESSINGS CHANGED. MEDICATED X 2 FOR C/O RT. HIP PAIN WITH PRN MEDS. AMBULATED TO AND FROM DR FOR LUNCH VERY SLOW GAIT. APPETITE GOOD AT BREAKFAST AND LUNCH. HERE AT LUNCH TIME VISITING. LORENA PORTILLO ROUNDED.
--- NOTE | 2018-11-01 18:23 | NUR ---
PT. AMBULATED TO DR AND BACK TO ROOM X 2 TODAY. APPETITE GOOD ALL MEALS. SON EMEKA HERE VISITING THIS AFTERNOON. PT. STATES SHE WANTS TO GET STRONGER AND RETURN HOME.
[2018-11-01 20:00] VITALS: BP 106/70
--- NOTE | 2018-11-02 05:51 | NUR ---
ASSUMED CARE AT 1930. PATIENT RESTED IN SPECIALTY BED ALL NIGHT. ABLE TO TURN SELF, BUT NEEDS HELP WITH POSITIONING PILLOWS. WAS ON PHONE UNTIL AROUND 2099. DRESSINGS C/D/I TO BACK. TAKES PILLS WHOLE A FEW AT A TIME WITH WATER OR SODA. MEDICATED FOR RT HIP AND BACK PAIN, SEE MAR. DRESSING TO RT HIP C/D/I, EMERSON DRAINS JONATAN URINE. O2 3L/NC CONTINUOUSLY. TOOK ATIVAN AT 2114 IN PREPARATION TO BE PUT ON TRILOGY. RT ASSISTED WITH APPLYING TRILOGY AT 2199 WITH O2 5L BLED THROUGH. WORE TRILOGY FROM 2099 TO 99. ATTEMPTED TO ENCOURAGE HER TO WEAR IT LONGER, UNSUCCESSFUL. 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 C/O LEG PAIN, GIVEN FLEXARIL WITH SUCCESS, SEE MAR. ASSISTED WITH TURNS THAT SHE ALLOWED. HOURLY ROUNDS CONTINUE. CALL LITE IN REACH.
[2018-11-02 06:25] VITALS: BP 103/59
[2018-11-02 08:11] VITALS: BP 100/64
--- NOTE | 2018-11-02 17:03 | NUR ---
AM ASSESSMENT AND VITAL SIGNS COMPLETED DOCUMENTED. PT HAS BEEN VERY COOPERATIVE WITH NURSING AND THERAPY. CHRONIC PAIN MANAGEMENT CONTINUES. PT HAS BEEN PASSING FLATUS BUT HAS NOT HAD A BOWEL MOVEMENT IN 4 DAYS. FALL PRECAUTIONS AND HOURLY ROUNDING CONTINUE.
[2018-11-02 20:00] VITALS: BP 126/76
--- NOTE | 2018-11-03 05:48 | NUR ---
ASSUMED CARE AT 1920. ALERT AND ORIENTED. PLEASANT. ON O2 3L NC. HAD TRILOGY ON FOR 6 HOURS. C/O PAIN TO RIGHT HIP, BACK AND LEGS. PAIN MEDS GIVEN NEEDED. EMERSON CATHETER DD YELLOW URINE. DID HAVE BM AT BEDTIME. SLEPT MOST OF THE NIGHT. PT REPOSITIONED WHEN REQUESTED. CALL LIGHT IN REACH.
[2018-11-03 07:28] VITALS: BP 97/54
--- NOTE | 2018-11-03 10:32 | NUR ---
SW called pt in preparation for team conference tomorrow; pt did not answer so SW left detailed message requesting call back if pt has any questions or concerns to present on pt/ behalf during team. SW to continue to follow to assist with safe dc planning.
--- NOTE | 2018-11-03 17:02 | NUR ---
ASSUMMED CARE OF PT AT 0730, PT ALERT AND ORIENTED, TRANSFERS WITH SBA, GB WALKER, SLOW TO MOVE CUEING, PT HAS EMERSON CATH IN THAT IS DRAINING YELLOW URINE, PT APETITE IMPROVED ATE WELL FOR BREAKFAST AND LUNCH, PT COMPLIANS OF HIP PAIN AND BACK PAIN, MEDICATED PER ORDER, PT ON SPECIALTY BED, MEPILEX DRESSINGS TO BACK INTACT, RIGHT HIP DRESSING C/D/I, PT HAD 2 SOFT STOOLS THIS SHIFT, PARTICIPATED IN ALL THERAPIES, HOURLY ROUNDING COMPLETED ASSESSMENT COMPLETE, WILL ARTHURUE TO MONITOR.
[2018-11-03 20:00] VITALS: BP 117/72
--- NOTE | 2018-11-04 05:36 | NUR ---
ASSUMED PT CARE AT 1930. PT ALERT AND ORIENTED X4, POLITE AND COOPERATIVE WITH CARES. PT ON SPECIALTY BED. MEPILEX DRESSINGS REPLACED TO BACK. PAIN MEDICATION GIVEN FOR C/O HIP AND BACK PAIN. DRESSING TO RIGHT HIP C/D/I. NO STOOL THIS SHIFT. EMERSON TO DD DRAINING YELLOW URINE. USES CALL LIGHT APPROPRIATELY. HOURLY ROUNDING IN PROGRESS, WILL CONTINUE TO MONITOR.
[2018-11-04 09:05] VITALS: BP 96/62
--- NOTE | 2018-11-04 12:10 | NUR ---
WOUND CARE NURSE- PATIENT WAS SEEN ON 10/27/18, AND TRANSFERRED FROM ACUTE INPATIENT TO REHAB LATER THAT DAY. SHE JUST FINISHED WORKING WITH THERAPY. SHE IS SITTING UP IN CHAIR, BUT ABLE TO ACCESS SITE WELL, SINCE ON THORACIC SPINE. PATIENT REPORTS THAT SHE DEVELOPED THE WOUND AT HOME, FROM HER RECLINER. UPPER WOUND IS APPROXIMATELY 1 X 0.8 X 0.1 CM WITH THIN FILM OF ADHERENT DRIED FIBRINOUS EXUDATE COVERING WOUND BED, WHICH IS ESSENTIALLY HEALED. NO DRAINAGE. LOWER WOUND 2.8 X 1.2 X 0.2 CM, WITH THINNING YELLOW SLOUGH COVERING APPROXIMATELY 80% OF WOUND BED, WITH PINK UNDERLYING TISSUE. NO DRAINAGE. LOWER WOUND REMAINS UNSTAGEABLE, UNTIL MORE OF NECROTIC TISSUE AUTOLYTICALLY DEBRIDED. BOTH WOUNDS CLEANSED WELL WITH WOUND CLEANSER, SURROUNDING SKIN CLEANSED WELL AND COVERED UPPER WOUND WITH FOAM BORDER DRESSING ONLY, LOWER WOUND WITH SMALL PIECE OF AQUACEL AG - LIGHTLY MOISTENED WITH SALINE, SINCE WOUND BED DRY. COVERED WITH FOAM BORDER DRESSING. PATIENT HAS PILLOWS IN CHAIR, AND ENCOURAGED TO TRY TO LIE ON HER SIDES IN BED. RIGHT HIP WITH SMALL INCISIONS ALL WELL APPROXIMATED WITH CORBIN, WITH NO DRAINAGE OR ERYTHMA. INCSIONS CLEANSED WELL WITH SALINE, REAPPLIED MEPILEX AG FOAM BORDER DRESSING.
--- NOTE | 2018-11-04 14:17 | NUR ---
ELVIN and Dr Adkins met with pt to review team conference summary and plan for pt to remain on rehab unit at least one more week to continue therapies and team to reassess pt length of stay during team conference next Friday. Pt in agreement with plan. SW to continue to follow to assist with safe dc planning.
--- NOTE | 2018-11-04 16:42 | NUR ---
PT PROGRESSING TOWARDS GOALS THIS SHIFT. VSS. TEAM MEETING COMPLETED. PT UP TO DINING ROOM FOR LUNCH. WALKED WITH GAIT BELT AND WALKER AND STB ASSIST TO DINING ROOM. IDANIA GERARDO'Tobi THIS AM. PT CONTINENT FOR BOWEL AND BLADDER THIS SHIFT. PT REPORTS VOIDING WITHOUT DIFFICULTY THIS AFTERNOON. NO OTHER CONCERNS AT THIS TIME. CLWR. WCTM.
[2018-11-04 21:00] VITALS: BP 109/72
--- NOTE | 2018-11-05 01:34 | NUR ---
ASSUMED CARE @ 1929-11/04-FRI.AWAKE IN BED W/ HOB UP.O2 ON @ 2L/NC CONTINOUS. WATCHING TV.ON BED SPECIALTY.FAN ON @ FOOT PART OF BED.WANTS ONLY RIGHT LE UP ON A PILLOW.PRN ATIVAN 0.5 MG ORAL GIVEN @ 2049-PER PT'S REQUEST.TRILOGY APPLIED BY RESP.THERAPIST @ 2119 W/ 02 5L PER PATIENT.SEVEN PAd APPLIED @ 2219. SINCE PATIENT HAS URGENCY.ON HOURLY ROUNDS.
--- NOTE | 2018-11-05 05:50 | NUR ---
SLEEPING SINCE 2300 & slept continously all NIGHT.DID NOT EVEN WAKE UP WHEN TURNED.BRP X3.URINE ACCIDENT X1 @ 2220.TOOK ALL CHIPS,APPLE JUICE & ONE PACKAGE VIN CRACKERS HS SNACKS.
--- NOTE | 2018-11-05 06:49 | NUR ---
see pain managements @ 8689 & 0608.USED TRILOGY X 8 HOURS.AWAKENED BY RESP.THERAPIST @ 0520 FOR PUL TX.THEN,AFTER PUL TX-PLACED O2 /NC.
[2018-11-05 08:00] VITALS: BP 105/63
[2018-11-05 20:00] VITALS: BP 139/83
--- NOTE | 2018-11-06 05:24 | NUR ---
ASSUMED CARE AT 1920. ALERT AND ORIENTED. PLEASANT. C/O PAIN TO RIGHT HIP/LEGS. PERCOCET GIVEN NEEDED. ON O2 3L NC. KEPT TRILOGY ON FOR ONLY 3 HOURS. DRESSINGS TO BACK AND RIGHT HIP ARE INTACT. MIN ASSIST WITH GAIT BELT AND WALKER. UP TO BSC X 3. SLEPT SOME. CALL LIGHT IN REACH.
[2018-11-06 08:00] VITALS: BP 112/70
--- NOTE | 2018-11-06 16:17 | NUR ---
AM ASSESSMENT AND VITAL SIGNS COMPLETED DOCUMENTED. PT HAS WORKED WITH ALL THERAPIES AND TOLERATED WELL. PRN LORAZEPAM, FLEXERIL AND PERCOCET GIVEN PER REQUEST. PT IS ON A LOW AIR LOSS SPECIALTY BED AND REQUIRES ASSISTANCE WITH REPOSITIONING EVERY TWO HOURS. APPETITE IS GREATLY INCREASED FROM ADMISSION. PT IS ALSO HAVING BM's ON A DAILY BASIS. FALL PRECAUTIONS AND HOURLY ROUNDING CONTINUE.
[2018-11-06 21:14] VITALS: BP 122/70
--- NOTE | 2018-11-07 01:43 | NUR ---
ASSUMED CARE @ 1942-11/07-FRIDAY.SITS IN RECLINER @ THIS TIME / 02 @ 3L/NC. AT 1942-WANTS BRP W/ GB/WALKER & O2.SBA FOR TOILETING.WANTS ONLY RIGHT HEEL OFF BED @ 1944.HOB UP WHILE IN BED.PRN FLEXERIL 10 MG ORAL GIVEN @ 2021-PER PT'S REQUEST.SEE PAIN MANAGEMENT @ 2202.TRILOGY PUT ON @ 2209.ON HOURLY ROUNDS.
--- NOTE | 2018-11-07 05:35 | NUR ---
AWAKE @ 0200.WANTS SNACKS.TOOK ALL TURKEY SANDWICH & COKE HS SNACKS.BRP W/ SBA X4.SLEEPING SINCE 2300 & SLEPT GOOD.RIGHT HIP DRSG CHANGED @ 0235. SPINE DRSGS CHANGED X2 SITES @ 0415.TRILOGY REQUESTED OFF @ 0415 & O2 PUT ON @ 3L/NC.USED TRILOGY X 6 HOURS.
[2018-11-07 07:30] VITALS: BP 122/68
--- NOTE | 2018-11-07 16:37 | NUR ---
PATIENT WORKED WITH THERAPY THIS SHIFT. UP WITH SBA WITH GAIT BELT AND WALKER, PATIENT REMAINS ON 3L NC. PRN ATIVAN GIVEN X 1, PRN PERCOCET GIVEN X 2 FOR RIGHT HIP PAIN AND PRN FLEXERIL GIVEN FOR RIGHT HIP PAIN ORDERED. PATIENT HAD A GOOD APPETITE TODAY. BM NOTED THIS SHIFT.
[2018-11-07 19:50] VITALS: BP 125/82
--- NOTE | 2018-11-08 02:52 | NUR ---
ASSUMED CARE @ -SAT.AWAKE IN BED W/ HOB UP W/ O2 @ 3L/NC.ON SPECIALTY BED.WANTS ONLY RIGHT HEEL OFF BED.SEE PAIN MANAGEMENTS @ 1951 & 46.TRILOGY PUT ON @ 2149 BUT PANICKED.O2 MASK SMALLER.PRN ATIVAN ORAL GIVEN @ 2155. THEN,TRILOGY APPLIED @ 2224.CALLED @ 0250 & REFUSED TRILOGY.O2 /NC PUT ON @ 0250 @ 3L/NC.ON HOURLY ROUNDS.
--- NOTE | 2018-11-08 05:41 | NUR ---
SLEEPING SINCE 2224 & SLEPT GOOD ALL NIGHT.BRP W/ SBA X4.TOOK ALL COOKIES & POP HS SNACKS.
--- NOTE | 2018-11-08 16:19 | NUR ---
PATIENT UP IN ROOM TODAY, SITTING IN CHAIR AND DINING SALAS FOR MEALS. UP TO BATHROOM WITH SBA, AND USE OF GAIT BELT AND WALKER. DRESSINGS REAPPLIED TO SPINE WOUNDS X 2 AND PHOTOS TAKEN PER PROTOCOL. PRN ATIVA, PERCOCET, AND FLEXERIL GIVEN PER MAR ORDERS.
[2018-11-08 19:45] VITALS: BP 126/85
--- NOTE | 2018-11-09 01:41 | NUR ---
ASSUMED CARE @ 1929-11/08-FRIDAY.AWAKE IN BED W/HOB UP & 02 @ 3L/NC.ON BED SPECIALTY.WANTS ONLY RIGHT LE UP ON A PILLOW @ 2029.SEE PAIN MANAGEMENT @ 2031.PRN ATIVAN 0.5 MG ORAL GIVEN @ 2105.THEN,TRILOGY PUT ON @ 2144.ON HOURLY ROUNDS.
--- NOTE | 2018-11-09 01:46 | NUR ---
ASSUMED CARE @ 1929-11/08-FRIDAY W/ HOB UP & O2 ON @ 3L/NC.ON SPECIALTY BED. WANTS ONLY RIGHT LE UP ON A PILLOW @ 2029.SEE PAIN MANAGEMENT @ 2031.PRN ATIVAN 0.5 MG ORAL GIVEN @ 2105-PER PT'S REQUEST.THEN,TRILOGY PUT ON @ 2144. ON HOURLY ROUNDS.
[2018-11-09 04:35] LABS: HEMATOCRIT 33.7 % (37.0-47.0); HEMOGLOBIN 10.6 gm/dL (12.0-15.0); MCH 28.2 pg (26.0-34.0); MCHC 31.5 g/dL (28.0-37.0); MCV 89.4 fL (80.0-100.0); MPV 7.9 fl. (7.2-11.1); RBC 3.76 mil/uL (4.20-5.00); RDW-CV 14.6 % (10.5-14.5); WBC 7.6 thou/uL (4.0-11.0)
[2018-11-09 04:47] LABS: CALCIUM 8.5 mg/dL (8.5-10.1); CREATININE 0.3 mg/dL (0.6-1.3); MAGNESIUM 1.9 mg/dL (1.8-2.4); POTASSIUM 3.4 mmol/L (3.5-5.1)
--- NOTE | 2018-11-09 05:34 | NUR ---
SLEEPING SINCE 0 & SLEPT GOOD ALL NIGHT.BRP W/ SBA X4.TOOK ALL COOKIES & POP HS SNACKS.WILL ASK ORTHO FOR ORDER TO DC CORBIN TODAY 11/09-FRIDAY.
[2018-11-09 08:32] VITALS: BP 115/76
[2018-11-09 17:00] VITALS: BP 115/73
--- NOTE | 2018-11-09 17:52 | NUR ---
ASSUMMED CARE OF PT AT 0730, PT ALERT AND ORIENTED, TRANSFERS WITH SBA, GB WALKER, TAKING FOOD AND FLUIDS WELL, COMPLAINS OF PAIN IN BACK AND RIGHT HIP, MEDICATED PER ORDER, CORBIN REMOVED TO RIGHT HIP INCISION, NO DRAINAGE NOTED, SENIOR ACCOUNT EXECUTIVE, MEPILEX INTACT TO BACK ULCERS, VOIDS PER TOILET, BM X 1 THIS SHIFT, PT COMPLAINED OF CHEST HEAVINESS WHEN AMBULATING BACK FORM BATHROOM, ALSO STATED SHE HAD SAME FEELING DURING PHYSICAL THERAPY, PT STATED IT RESOLVED ONCE SHE WAS LAYING DOWN, VSS 115/73, PULSE 109, O2 SAT 99% ON 3L, DR HAWK INFORMED, TO NOTIFIY HIM IF HEAVINESS DOES NOT RESOLVE WITH REST, K+ LOW THIS AM, REPLACED PER ORDER, PARTICIPATED IN ALL THERAPIES, HOURLY ROUNDING COMPLETED, ASSESSMENT COMPLETE, WILL CONTINUE TO MONITOR.
[2018-11-09 20:12] VITALS: BP 143/83
--- NOTE | 2018-11-10 05:07 | NUR ---
ASSUMED CARES AT 1920. ALERT AND ORIENTED. PLEASANT. ON O2 3L NC. TRILOGY AT NIGHT. C/O PAIN TO RIGHT HIP/LEG. PAIN MEDS GIVEN NEEDED. RIGHT HIP INCISION WELL APPROXIMATED AND CONSTRUCTION SAFETY CONSULTANT. MIN ASSIST WITH GAIT BELT AND WALKER. UP TO BATHROOM. DOES OWN CARES. SLEPT OFF AND ON. CALL LIGHT IN REACH.
[2018-11-10 08:45] VITALS: BP 126/82
--- NOTE | 2018-11-10 15:51 | EKG ---
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1960 Requested By: Bryce Veras Order Number: [id number] Reading MD: Nabil Vyas Measurements Intervals [place] Rate: 114 P: 38 RI: 98 QRS: 65 QRSD: 72 T: 55 QT: 301 QTc: 415 Interpretive Statements Sinus tachycardia Consider left ventricular hypertrophy Baseline wander in lead(s) V4,V5,V6 Compared to ECG 10/18/2018 10:04:02 No significant changes Electronically Signed On 11-10-2018 15:51:08 CDT by Nabil Vyas [email or web address] <ELECTRONICALLY SIGNED> By: Nabil Vyas MD, FAC 11/10/18 1551 1527 1527 Nabil Vyas MD, [facility] /EPI
--- NOTE | 2018-11-10 15:59 | NUR ---
ASSUMMED CARE OF PT AT 0730, PT TRANSFERS WITH SBA GB WALKER, PT AMBULATED TO DININGROOM FOR LUNCH, PT COMPLAINS OF GENERALIZED PAIN, MEDICATED PER ORDER, PT DID COMPLAIN OF A SLIGHT PANIC ATTACK, WAS FEELING CLAUSTROPHOBIC, HOT AND NEEDED TO GET OUT OF ROOM, ATIVAN GIVEN WITH RELIEF OF ANXIETY SYMPTOMS, IN DININGROOM TODAY PT NOTED THAT SHE KNOWS ANOTHER PT ON UNIT AND DOES NOT WANT ANY CONTACT WITH HER, SO HAS REQUESTED TO EAT IN HER ROOM, BM X 1 THIS SHIFT,VOIDS PER TOILET, NO COMPLAINTS OF CHEST PRESSURE THIS SHIFT, PT PARTICIPATED IN ALL THERAPIES, HOURLY ROUNDING COMPLETED ASSESSMENT COMPLETE, WILL CONTINUE TO MONITOR.
[2018-11-10 20:00] VITALS: BP 149/82
--- NOTE | 2018-11-11 05:36 | NUR ---
ASSUMED CARES AT 1920. ALERT AND ORIENTED. PLEASANT. ON O2 3L NC. TRILOGY AT NIGHT. ATIVAN GIVEN AT BEDTIME. PAIN MEDS GIVEN NEEDED. RIGHT HIP INCISIONS NATHAN. SBA WITH GAIT BELT AND WALKER. UP TO BATHROOM. DOES OWN CARES. SLEPT FOR GOOD WHILE. CALL LIGHT IN REACH.
[2018-11-11 08:00] VITALS: BP 116/71
[2018-11-11 09:01] VITALS: BP 116/71
--- NOTE | 2018-11-11 12:26 | NUR ---
WOUND NURSE- PATIENT REMAINS ON INPATIENT REHAB UNIT, BUT IS HOPING TO GO HOME SOON. CORBIN HAVE BEEN REMOVED FROM RIGHT HIP INCISIONS, WHICH REMAIN OPEN TO AIR AND HEALING WELL. UPPER BACK PRESSURE ULCER HAS ESSENTIALLY RESOLVED, WITH A SMALL AREA OF NEW PINK EPITHELIAL TISSUE, APPROXIMATELY 1.2 X 0.8 CM. LOWER UNSTAGEABLE PRESSURE ULCER IS SLOWLY IMPROVING, NOW 2.4 X 1.4 CM - SUPERFICIAL WITH NO SIGNIFICANT DEPTH, ALTHOUGH UNABLE TO DETERMINE BENEATH REMAINING NECROTIC SLOUGH COVERING APPROXIMATELY 30% OF WOUND. REMAINING WOUND BED PINK & MOIST WITH MINIMAL BLEEDING WITH CLEANSING. SURROUNDING SKIN PINK & INTACT, NO ERYTHEMA, INDURATION OR FLUCTUANCE. WOUND CLEANSED WELL WITH SALINE, SURROUNDING SKIN CLEANSED WELL AND AQUACEL AG (LIGHTLY MOISTENED WITH SALINE) AND BORDERED FOAM DRESSING APPLIED. RECOMMENDATIONS: -CONTINUE WOUND CARE, WILL NEED HOME HEALTH ON DISCHARGE -REINFORCED IMPORTANCE OF KEEPING PRESSURE OFF OF THORACI SPINE, BOTH IN BED AND IN RECLINER -ENCOURAGED HIGH PROTEIN WELL-BALANCED DIET TO PROMOTE WOUND HEALING
--- NOTE | 2018-11-11 15:51 | NUR ---
AM ASSESSMENT AND VITAL SIGNS COMPLETED DOCUMENTED. PT CONTINUES TO PARTICIPATE IN THERAPIES AND HAS PROGRESSED WELL. PAIN MANAGEMENT OBTAINED WITH PRN PERCOCET AND FLEXERIL. FALL PRECAUTIONS AND HOURLY ROUNDING CONTINUE.
--- NOTE | 2018-11-11 16:07 | NUR ---
ELVIN and Dr Adkins met with pt to review team conference summary and plan for pt to dc home with on Monday 11/13. Pt very excited and in agreement with this plan. SW to continue to follow to assist with safe dc planning.
[2018-11-11 19:40] VITALS: BP 155/80
--- NOTE | 2018-11-12 01:13 | NUR ---
ASSUMED CARE @ 1914-.AWAKE IN BED WATCHING TV & BALANCING CHECK @ THE SAME TIME.HOB UP.O2 ON @ 3L/NC.RIGHT HEEL OFF BED @ 1939.ON BED SPECIALTY. SBA FOR ALL TRANSFERS & TOILETING.PRN ATIVAN 0.5 MG ORAL GIVEN @ 2121-PER PT'S REQUEST.THEN,TRILOGY PUT ON @ 2149.ON HOURLY ROUNDS.
--- NOTE | 2018-11-12 05:39 | NUR ---
SLEERPING SINCE 2199 & SLEPT GOOD ALL NIGHT.BRP W/ SBA X4.WANTS TRILOGY OFF @ 0235 & 02 3L/NC PUT ON.USED TRILOGY X 4 HOURS & 45 MINUTES.WANTS SNACKS @ 0235.HS SNACKS-SMITHA.PUDDING & POP.0235 SNACKS-TURKEY SANDWICH,PEACHES,POP & CHIPS.SEE PAIN MANAGEMENT @ 0309.MEPILEX LOOSE ON SPINE DRSGS.CHANGED @ 0315.
[2018-11-12 08:00] VITALS: BP 122/80
--- NOTE | 2018-11-12 16:15 | NUR ---
SW met with pt to discuss dc planning for tomorrow; pt to dc home with and HH services to follow, pt has all needed DME at home already. Pt signed IMM, copy to pt and original on chart. SW provided pt with HH options and pt did not decide yet but said she would provide preference of HH to SW tomorrow prior to dc. SW to continue to follow to assist with finalizing safe dc plan.
[2018-11-12 20:28] VITALS: BP 139/70
--- NOTE | 2018-11-13 02:29 | NUR ---
ASSUMED CARE @ 1926-11/12-.AWAKE IN BED ON HER SMART PHONE.HOB UP.ON BED SPECIALTY.02 ON @ 3L/NC.WANTS ONLY RIGHT HEEL OFF BED @ 1929.PRN FLEXERIL 10 MG & PRN ATIVAN 0.5 MG BOTH GIVEN @ 2120-PER PT'S REQUEST.WBAT RIGHT LE.TRILOGY ON @ 2199.CALLED @ 0145 TO TURN OFF TRILOGY & put on o2.used trilogy x 3 hours & 45 MINUTES.SEE PAIN MANAGEMENT @ 0155.ON HOURLY ROUNDS.
--- NOTE | 2018-11-13 05:26 | NUR ---
SLEEPING SINCE 2224.REFUSED HS SNACK BUT CALLED FOR SMITHA.ENSURE @ 0230 & TAKEN ALL.C/O BEING NERVOUS.INFORMED PATIENT-MOST PATIENTS GET NERVOUS NIGHT BEFORE DISCHARGE.BRAXTON W/ YEFRI X4.FOR DISCHARGE TODAY-11/13-FRIDAY.
[2018-11-13 08:03] VITALS: BP 114/73
[2018-11-13 10:34] VITALS: BP 114/73
[2018-11-13] MEDS ORDERED: ATIVAN0.5 MG PO (11:29)
[2018-11-13] MEDS ORDERED: PERCOCET PO (11:30)
[2018-11-13 11:54] VITALS: BP 114/73
--- NOTE | 2018-11-13 11:57 | NUR ---
ELVIN met with pt and pt to finalize safe dc plan for pt to dc home with today and HH services to follow. Pt preference for [facility]; ELVIN faxed referral, orders, med list to [facility] [phone] and fax [phone].
--- NOTE | 2018-11-13 12:47 | NUR ---
PATIENT DISCHARGED TO HOME WITH HOME HEALTH. VERBALIZES UNDERSTANDING OF PAPERWORK AND SCRIPTS. WOUND PHOTOS TAKEN AND WOUND CARE INSTRUCTIONS GIVEN FOR SPINE WOUNDS. ALL BELONGINGS SENT WITH PATIENT. DR. NAVA'S OFFICE NOTIFIED THAT PATIENT NEEDS APPT, WILL CALL PATIENT FRIDAY PER OFFICE STAFF. PATIENT TAKEN OUT VIA WHEELCHAIR WITH ALL BELONGINGS.
== END 2018-11-13 12:40 | disposition home health service (06) | DRG 963 ==
LOC: M.2W 13:51 → M.REH 14:37
PROVIDERS: Internal Medicine; ADMIT Physical Medicine & Rehabilitation
PROC: 5A09357 Assistance with Respiratory Ventilation, Less than 24 Consecutive Hours, Continuous Positive Airway Pressure (ICD-10-PCS; principal; 2018-10-27)
PROC: 5A09357 Assistance with Respiratory Ventilation, Less than 24 Consecutive Hours, Continuous Positive Airway Pressure (ICD-10-PCS; 2018-11-02)
PROC: 5A09357 Assistance with Respiratory Ventilation, Less than 24 Consecutive Hours, Continuous Positive Airway Pressure (ICD-10-PCS; 2018-11-03)
PROC: 5A09357 Assistance with Respiratory Ventilation, Less than 24 Consecutive Hours, Continuous Positive Airway Pressure (ICD-10-PCS; 2018-11-04)
PROC: 5A09357 Assistance with Respiratory Ventilation, Less than 24 Consecutive Hours, Continuous Positive Airway Pressure (ICD-10-PCS; 2018-11-05)
PROC: 5A09357 Assistance with Respiratory Ventilation, Less than 24 Consecutive Hours, Continuous Positive Airway Pressure (ICD-10-PCS; 2018-11-09)
PROC: 5A09357 Assistance with Respiratory Ventilation, Less than 24 Consecutive Hours, Continuous Positive Airway Pressure (ICD-10-PCS; 2018-11-10)
DX: S72.001A Fracture of unspecified part of neck of right femur, initial encounter for closed fracture (principal); J96.21 Acute and chronic respiratory failure with hypoxia; S27.0XXA Traumatic pneumothorax, initial encounter; J96.22 Acute and chronic respiratory failure with hypercapnia; E43 Unspecified severe protein-calorie malnutrition; E87.1 Hypo-osmolality and hyponatremia; Z68.1 Body mass index [BMI] 19.9 or less, adult; W18.30XA Fall on same level, unspecified, initial encounter; G25.81 Restless legs syndrome; D64.9 Anemia, unspecified; J44.9 Chronic obstructive pulmonary disease, unspecified; F17.210 Nicotine dependence, cigarettes, uncomplicated; J84.10 Pulmonary fibrosis, unspecified; M34.1 CR(E)ST syndrome; L89.109 Pressure ulcer of unspecified part of back, unspecified stage; Y93.89 Activity, other specified; Y92.89 Other specified places as the place of occurrence of the external cause; Y99.8 Other external cause status; Z98.891 History of uterine scar from previous surgery; Z79.899 Other long term (current) drug therapy; Z88.6 Allergy status to analgesic agent; Z80.3 Family history of malignant neoplasm of breast; Z90.49 Acquired absence of other specified parts of digestive tract

== ENCOUNTER → 2018-12-02 | Outpatient (CLI) | payer MEDICARE, OTHER ==
[~2018-12-02] MED LIST changes: +EFFEXOR XR150 MG PO; +FLEXERIL PO; +PERCOCET PO; +VITAMIN D5000 UNIT PO
== END ==
LOC: M.PC 03:35
DX: S72.001D Fracture of unspecified part of neck of right femur, subsequent encounter for closed fracture with routine healing (principal); J84.10 Pulmonary fibrosis, unspecified; J44.9 Chronic obstructive pulmonary disease, unspecified; F41.9 Anxiety disorder, unspecified; Z88.5 Allergy status to narcotic agent; X58.XXXD Exposure to other specified factors, subsequent encounter; G25.81 Restless legs syndrome